=== PATIENT | male | born 1945 | race Two or more races ===

== ENCOUNTER 2018-05-13 14:38 | Emergency (ER) | payer MEDICARE ==
[~2018-05-13] VITALS: Ht 162.6 cm; Wt 76.1 kg
[~2018-05-13 14:38] MED LIST: ALPR1TAB6 PO; HYDR-3237 PO; LEVO112T4 PO; MELA1TAB7 PO; TRAM50TA2 PO; ZOLP5TAB6 PO
[2018-05-13] MEDS ORDERED: SODIUM CHLORIDE FLUSH 10ML SYR IVF ONE (15:00)
[2018-05-13] MEDS ORDERED: FAMOTIDINE 20 MG/2 ML IVP ONE (15:00)
[2018-05-13 15:46] LABS: BASOPHILS # (AUTO) 0.04 x10^3/uL (0-0.1); BASOPHILS % (AUTO) 1 % (0-1); EOSINOPHILS # (AUTO) 0.16 x10^3/uL (0-0.4); EOSINOPHILS % (AUTO) 3 % (1-7); LYMPHOCYTES # (AUTO) 1.97 x10^3/uL (1-3.4); LYMPHOCYTES % (AUTO) 33 % (22-44); MD NO; MEAN CORPUSCULAR HEMOGLOBIN 29.6 pg (27.5-34.5); MEAN CORPUSCULAR HGB CONC 33.3 g/dL (33.2-36.2); MEAN CORPUSCULAR VOLUME 88.9 fL (81-97); MEAN PLATELET VOLUME 7.4 fL (7.4-10.4); MONOCYTES # (AUTO) 0.44 x10^3/uL (0.2-0.8); MONOCYTES % (AUTO) 7 % (2-9); NEUTROPHILS # (AUTO) 3.39 x10^3/uL (1.8-6.8); NEUTROPHILS % (AUTO) 57 % (42-75); PLATELET COUNT 236 x10^3/uL (130-400); RED BLOOD COUNT 4.77 x10^6/uL (4.38-5.82); RED CELL DISTRIBUTION WIDTH 13.9 % (9.4-14.8)
[2018-05-13 15:48] LABS: ALBUMIN 3.8 g/dL (3.4-5.0); ANION GAP 2 mmol/L (5-15); CALCIUM 8.4 mg/dL (8.5-10.1); CHLORIDE 106 mmol/L (98-107)
[2018-05-13 15:51] LABS: ALANINE AMINOTRANSFERASE 25 U/L (12-78); ALKALINE PHOSPHATASE 67 U/L (45-117); BILIRUBIN,TOTAL 0.6 mg/dL (0.2-1.0); CREATININE 0.85 mg/dL (0.7-1.3); TOTAL PROTEIN 7.6 g/dL (6.4-8.2)
--- NOTE | 2018-05-13 15:54 | NUR ---
TO ROOM FROM LOBBY. NAD.
--- NOTE | 2018-05-13 16:15 | NUR ---
PT WITH C/O DIFUSE ABD PAIN X 3 WEEKS. +NAUSEA WITH 1 EPISODE OF EMESIS TODAY. PT ON MONITOR, AND CALL LIGHT W/I REACH. MARILYN, NICO AT BEDSIDE. PT ASSESSMENT REVIEWED AND ORDERS REC'D
[2018-05-13 16:23] VITALS: BP 170/81
--- NOTE | 2018-05-13 16:26 | NUR ---
PT TO CT WITH TECH TRANSPORT
[2018-05-13] MEDS ORDERED: FAMOTIDINE 20 MG/2 ML ONE (16:27)
--- NOTE | 2018-05-13 16:45 | NUR ---
PT AMBULATED TO BR WITHOUT DIFFICULTY.
--- NOTE | 2018-05-13 16:52 | NUR ---
PT RTD FROM CT, MED NOTED. CALL LIGHT W/I REACH. AWAITING TEST RESULTS
[2018-05-13 16:56] LABS: MICROSCOPIC NOT IND
[2018-05-13 17:11] LABS: CULTURE INDICATED? NO
[2018-05-13] MEDS ORDERED: MAALOX/HYOSCYAMINE/LIDOCAINE 45 ML BTL PO ONE (17:30)
== END 2018-05-13 18:00 | disposition home or self-care (01) ==
LOC: ED 17:43
DX: K29.00 Acute gastritis without bleeding (principal); I10 Essential (primary) hypertension; E03.9 Hypothyroidism, unspecified; E11.9 Type 2 diabetes mellitus without complications; N40.0 Benign prostatic hyperplasia without lower urinary tract symptoms; Z90.49 Acquired absence of other specified parts of digestive tract; Z90.89 Acquired absence of other organs
CPT/HCPCS: 36415; 74177; 80053; 81003; 83690; 85025; 96374; 99284; J3490

== ENCOUNTER 2018-06-09 13:08 | Inpatient (IN) | payer MEDICARE ==
[~2018-06-09] VITALS: Ht 165.1 cm; Wt 74.8 kg
--- NOTE | 2018-06-09 13:29 | NUR ---
PT PRESENTS TO ED FOR LUQ AND MID ABD PAIN X1MO, 10/10 SEVERE TODAY WITH VOMITING. PT SUPPOSED TO FOLLOW UP WITH GI DOCTOR BUT CANNOT GET IN UNTIL JUNE. PT STATES IT HURTS MORE WHEN HE EATS.
[2018-06-09] MEDS ORDERED: HYDROcodone/APAP 5/325 TABLET ONE (13:55)
[2018-06-09] MEDS ORDERED: FAMOTIDINE 20 MG TABLET ONE (13:55)
[2018-06-09] MEDS ORDERED: MAALOX/HYOSCYAMINE/LIDOCAINE 45 ML BTL ONE (13:56)
[2018-06-09] MEDS ORDERED: FAMOTIDINE 20 MG TABLET PO ONE (14:00)
[2018-06-09] MEDS ORDERED: MAALOX/HYOSCYAMINE/LIDOCAINE 45 ML BTL PO ONE (14:00)
[2018-06-09] MEDS ORDERED: HYDROcodone/APAP 5/325 TABLET PO ONE (14:00)
[2018-06-09 14:17] LABS: BASOPHILS # (AUTO) 0.01 x10^3/uL (0-0.1); BASOPHILS % (AUTO) 0 % (0-1); EOSINOPHILS # (AUTO) 0.08 x10^3/uL (0-0.4); EOSINOPHILS % (AUTO) 2 % (1-7); LYMPHOCYTES # (AUTO) 0.93 x10^3/uL (1-3.4); LYMPHOCYTES % (AUTO) 19 % (22-44); MD NO; MEAN CORPUSCULAR HGB CONC 33.8 g/dL (33.2-36.2); MEAN CORPUSCULAR VOLUME 88.9 fL (81-97); MEAN PLATELET VOLUME 7.4 fL (7.4-10.4); MONOCYTES # (AUTO) 0.27 x10^3/uL (0.2-0.8); MONOCYTES % (AUTO) 6 % (2-9); NEUTROPHILS # (AUTO) 3.72 x10^3/uL (1.8-6.8); NEUTROPHILS % (AUTO) 74 % (42-75); PLATELET COUNT 266 x10^3/uL (130-400); RED BLOOD COUNT 5.09 x10^6/uL (4.38-5.82); RED CELL DISTRIBUTION WIDTH 13.4 % (9.4-14.8)
--- NOTE | 2018-06-09 14:30 | NUR ---
IV ESTABLISHED, PT MEDICATED FOR PAIN. ADMIT ORDERS RECIEVED, AWAITING BED PLACEMENT
[2018-06-09 14:33] LABS: ALANINE AMINOTRANSFERASE 266 U/L (12-78); ALBUMIN 3.9 g/dL (3.4-5.0); ALKALINE PHOSPHATASE 211 U/L (45-117); ANION GAP 5 mmol/L (5-15); BILIRUBIN,TOTAL 3.8 mg/dL (0.2-1.0); CHLORIDE 106 mmol/L (98-107); CREATININE 0.96 mg/dL (0.7-1.3); TOTAL PROTEIN 7.5 g/dL (6.4-8.2)
[2018-06-09] MEDS: SODIUM CHLORIDE 0.9% 1,000 ML IV SCH ×6 (14:59→23:00)
[2018-06-09] MEDS ORDERED: ONDANSETRON 2MG/ML, 2ML IVPush ONE (15:00)
[2018-06-09] MEDS ORDERED: morphine SULFATE 10 MG/ML, 1ML IVPush ONE (15:00)
[2018-06-09] MEDS ORDERED: MORPHINE SULFATE 4 MG/ML, 1ML ONE (15:05)
[2018-06-09] MEDS ORDERED: ONDANSETRON 2MG/ML, 2ML ONE (15:05)
[2018-06-09] MEDS ORDERED: OMEP10CA4 PO (15:59)
[2018-06-09] MEDS ORDERED: PRAV10TA2 PO (15:59)
--- NOTE | 2018-06-09 15:59 | NUR ---
PT RESTING IN [facility] WITH AT BEDSIDE. AWAITING MED BED PLACEMENT. VSS. PAIN NOW 10/08. PT REQUESTING PRIVATE ROOM, ADMITTING NOTIFIED. MED REC UPDATED. AT BEDSIDE
[2018-06-09] MEDS ORDERED: TEMPLATE NON-FORMULARY MED. (Alprazolam** 1 MG) PO PRN (16:00)
[2018-06-09] MEDS ORDERED: ENALAPRILAT 1.25 MG/ML, 2ML IVPush PRN (16:00)
[2018-06-09] MEDS ORDERED: HYDROcodone/APAP 5/325 TABLET PO PRN (16:00)
--- NOTE | 2018-06-09 16:45 | NUR ---
PT TO US
[2018-06-09 17:21] LABS: HEMOGLOBIN A1C 7.4 % (4.2-6.3)
--- NOTE | 2018-06-09 17:22 | NUR ---
PT BACK FROM US, RESTING IN [facility], ON MONITOR. CALL LIGHT WITHIN REACH. NO NEEDS AT THIS TIME
--- NOTE | 2018-06-09 18:12 | NUR ---
PT RESTING IN [facility] [place], CALL LIGHT WITHIN REACH, VSS, NAD
--- NOTE | 2018-06-09 19:06 | NUR ---
REPORT RECEIVED FROM [place] [facility].
--- NOTE | 2018-06-09 20:00 | NUR ---
PT PROVIDED URINAL. URINAL AT BEDSIDE.
[2018-06-09] MEDS: [UNRECOGNIZED DRUG - OTHER] PO SCH (21:00)
[2018-06-09] MEDS: PYRIDOXINE PO SCH (21:00)
[2018-06-09] MEDS: MELATONIN PO SCH (21:00)
--- NOTE | 2018-06-09 21:19 | NUR ---
REPORT GIVEN TO [place] [facility].
[2018-06-09] MEDS: PANTOPRAZOLE 40 MG IV IVPush SCH (22:30)
[2018-06-09] MEDS: morphine SULFATE 10 MG/ML, 1ML IVPush PRN (22:30)
[2018-06-09 23:37] VITALS: BP 169/90
[2018-06-10] MEDS: SODIUM CHLORIDE 0.9% 1,000 ML IV SCH ×3 (01:56→17:45)
[2018-06-10 02:28] VITALS: BP 154/100
[2018-06-10] MEDS: morphine SULFATE 10 MG/ML, 1ML IVPush PRN ×7 (02:55→23:03)
[2018-06-10] MEDS: ONDANSETRON 2MG/ML, 2ML IVPush PRN (02:55)
[2018-06-10 04:39] LABS: BASOPHILS # (AUTO) 0.01 x10^3/uL (0-0.1); BASOPHILS % (AUTO) 0 % (0-1); EOSINOPHILS # (AUTO) 0.23 x10^3/uL (0-0.4); EOSINOPHILS % (AUTO) 4 % (1-7); LYMPHOCYTES # (AUTO) 1.44 x10^3/uL (1-3.4); LYMPHOCYTES % (AUTO) 24 % (22-44); MD NO; MEAN CORPUSCULAR HEMOGLOBIN 30.5 pg (27.5-34.5); MEAN CORPUSCULAR HGB CONC 34.2 g/dL (33.2-36.2); MEAN CORPUSCULAR VOLUME 89.2 fL (81-97); MEAN PLATELET VOLUME 7.5 fL (7.4-10.4); MONOCYTES # (AUTO) 0.38 x10^3/uL (0.2-0.8); MONOCYTES % (AUTO) 6 % (2-9); NEUTROPHILS # (AUTO) 3.85 x10^3/uL (1.8-6.8); NEUTROPHILS % (AUTO) 65 % (42-75); PLATELET COUNT 240 x10^3/uL (130-400); RED CELL DISTRIBUTION WIDTH 13.7 % (9.4-14.8)
[2018-06-10 04:52] LABS: CHLORIDE 108 mmol/L (98-107)
[2018-06-10 05:03] LABS: ALANINE AMINOTRANSFERASE 212 U/L (12-78); ALBUMIN 3.3 g/dL (3.4-5.0); ALKALINE PHOSPHATASE 206 U/L (45-117); ANION GAP 3 mmol/L (5-15); BILIRUBIN,TOTAL 2.2 mg/dL (0.2-1.0); CALCIUM 8.1 mg/dL (8.5-10.1); CHOL/HDL RATIO 4.1; CHOLESTEROL, TOTAL 170 mg/dL (140-239); CREATININE 0.71 mg/dL (0.7-1.3); HDL CHOL % 24 % (26-37); HDL CHOLESTEROL (DIRECT) 41 mg/dL (40-60); LDL CHOLESTEROL,CALCULATED 108 mg/dL (54-169); LDL/HDL RATIO 2.6 (0.5-3.0); TOTAL PROTEIN 6.9 g/dL (6.4-8.2); TRIGLYCERIDES 103 mg/dL (50-200); VLDL CHOLESTEROL 21 mg/dL (0-25)
[2018-06-10] MEDS: PANTOPRAZOLE 40 MG IV IVPush SCH ×2 (08:54→22:14)
[2018-06-10] MEDS ORDERED: GLIMEPIRIDE 1 MG TABLET PO SCH ×2 (09:00→16:00)
[2018-06-10] MEDS ORDERED: LEVOTHYROXINE 112 MCG TABLET PO SCH (09:00)
[2018-06-10] MEDS: LEVOTHYROXINE 100 MCG INJ IVPush SCH (09:05)
[2018-06-10 14:30] VITALS: BP 147/82
[2018-06-10] MEDS ORDERED: POTASSIUM PHOSPHATE 22 MEQ in SODIUM CHLORIDE 0.9% 500 ML IV ONE (16:00)
[2018-06-10 19:45] VITALS: BP 164/84
[2018-06-10] MEDS: MELATONIN PO SCH (21:00)
[2018-06-10] MEDS: [UNRECOGNIZED DRUG - OTHER] PO SCH (21:00)
[2018-06-10] MEDS: PYRIDOXINE PO SCH (21:00)
[2018-06-11] MEDS: ONDANSETRON 2MG/ML, 2ML IVPush PRN (01:02)
[2018-06-11 02:30] VITALS: BP 138/89
[2018-06-11 04:38] LABS: ALANINE AMINOTRANSFERASE 147 U/L (12-78); ALBUMIN 3.4 g/dL (3.4-5.0); ANION GAP 8 mmol/L (5-15); CALCIUM 8.2 mg/dL (8.5-10.1); CHLORIDE 109 mmol/L (98-107); CREATININE 0.82 mg/dL (0.7-1.3)
[2018-06-11 04:40] LABS: ALKALINE PHOSPHATASE 182 U/L (45-117); BILIRUBIN,TOTAL 1.2 mg/dL (0.2-1.0); TOTAL PROTEIN 6.7 g/dL (6.4-8.2)
[2018-06-11 08:03] VITALS: BP 175/93
[2018-06-11] MEDS: morphine SULFATE 10 MG/ML, 1ML IVPush PRN (08:12)
[2018-06-11] MEDS: SODIUM CHLORIDE 0.9% 1,000 ML IV SCH (08:12)
[2018-06-11] MEDS: LEVOTHYROXINE 100 MCG INJ IVPush SCH (08:15)
[2018-06-11] MEDS ORDERED: GLIMEPIRIDE 1 MG TABLET PO SCH (09:00)
[2018-06-11] MEDS: PANTOPRAZOLE 40 MG IV IVPush SCH (10:38)
[2018-06-11] MEDS ORDERED: OMEP10CA4 PO (10:40)
[2018-06-11] MEDS ORDERED: SUCR1ORA5 PO (10:40)
[2018-06-11] MEDS ORDERED: GLIM1TAB PO ×2 (10:40)
[2018-06-11 15:24] VITALS: BP 148/85
== END 2018-06-11 15:45 | disposition home or self-care (01) | DRG 438 ==
LOC: ED 14:53 → SUATTDRO 15:17 → EDIP 15:19 → ICU 21:45 → DCLOUNGE 06-11 15:26
PROVIDERS: ADMIT Hospitalist; ATTEND Hospitalist
DX: K85.00 Idiopathic acute pancreatitis without necrosis or infection (principal); K83.1 Obstruction of bile duct; E03.9 Hypothyroidism, unspecified; E11.65 Type 2 diabetes mellitus with hyperglycemia; E78.5 Hyperlipidemia, unspecified; E83.39 Other disorders of phosphorus metabolism; F41.9 Anxiety disorder, unspecified; I10 Essential (primary) hypertension; N40.0 Benign prostatic hyperplasia without lower urinary tract symptoms; Z90.49 Acquired absence of other specified parts of digestive tract; Z89.022 Acquired absence of left finger(s); Z87.891 Personal history of nicotine dependence
CPT/HCPCS: 36415; 76700; 80053; 80061; 80074; 83036; 83690; 83735; 84100; 84443; 85025; 86677; 87081; 96374; 96375; 99285; G0378; J2405; C9113; J2270; J7030; J7040

== ENCOUNTER 2018-06-24 12:25 | Inpatient (IN) | payer MEDICARE ==
[~2018-06-24] VITALS: Ht 167.6 cm; Wt 66.5 kg
[~2018-06-24 12:25] MED LIST changes: +GLIM1TAB PO; +OMEP10CA4 PO; +PRAV10TA2 PO; +SUCR1ORA5 PO
[2018-06-24 13:27] LABS: BASOPHILS # (AUTO) 0.03 x10^3/uL (0-0.1); BASOPHILS % (AUTO) 1 % (0-1); EOSINOPHILS # (AUTO) 0.12 x10^3/uL (0-0.4); EOSINOPHILS % (AUTO) 2 % (1-7); LYMPHOCYTES # (AUTO) 1.04 x10^3/uL (1-3.4); LYMPHOCYTES % (AUTO) 21 % (22-44); MD NO; MEAN CORPUSCULAR HEMOGLOBIN 29.9 pg (27.5-34.5); MEAN CORPUSCULAR HGB CONC 33.5 g/dL (33.2-36.2); MEAN CORPUSCULAR VOLUME 89.3 fL (81-97); MEAN PLATELET VOLUME 7.7 fL (7.4-10.4); MONOCYTES # (AUTO) 0.27 x10^3/uL (0.2-0.8); MONOCYTES % (AUTO) 5 % (2-9); NEUTROPHILS # (AUTO) 3.62 x10^3/uL (1.8-6.8); NEUTROPHILS % (AUTO) 71 % (42-75); PLATELET COUNT 277 x10^3/uL (130-400)
[2018-06-24 13:39] LABS: ANION GAP 7 mmol/L (5-15); CALCIUM 8.9 mg/dL (8.5-10.1); CHLORIDE 102 mmol/L (98-107)
[2018-06-24 13:43] LABS: ALANINE AMINOTRANSFERASE 231 U/L (12-78); ALKALINE PHOSPHATASE 267 U/L (45-117); BILIRUBIN,TOTAL 1.3 mg/dL (0.2-1.0); CREATININE 0.94 mg/dL (0.7-1.3); TOTAL PROTEIN 7.5 g/dL (6.4-8.2)
--- NOTE | 2018-06-24 14:16 | NUR ---
TIFFANY-Whitney IS AT THE BEDSIDE FOR ASSESSMENT
[2018-06-24 14:45] LABS: MICROSCOPIC NOT IND
[2018-06-24 14:48] LABS: CULTURE INDICATED? NO
[2018-06-24] MEDS ORDERED: MORPHINE SULFATE 4 MG/ML, 1ML IVPush PRN (15:30)
[2018-06-24] MEDS ORDERED: ONDANSETRON 2MG/ML, 2ML IVPush ONE (15:30)
[2018-06-24] MEDS ORDERED: SODIUM CHLORIDE FLUSH 10ML SYR IVF ONE (15:30)
[2018-06-24] MEDS ORDERED: MORPHINE SULFATE 4 MG/ML, 1ML ONE (16:18)
[2018-06-24] MEDS ORDERED: ONDANSETRON 2MG/ML, 2ML ONE (16:18)
--- NOTE | 2018-06-24 16:28 | NUR ---
IS AT THE BEDSIDE FOR DISPO.
--- NOTE | 2018-06-24 18:28 | NUR ---
[facility]
--- NOTE | 2018-06-24 18:31 | NUR ---
VERBAL SBAR REPORT EXCHANGED Qamar ALVAREZ ([facility]) ON THE FLOOR FOR ADMISSIN. WE WILL BEGIN TO PREPARE FOR TRANSPORT AT THIS TIME.
[2018-06-24] MEDS: HEPARIN 5,000 UNITS/ML, 1ML SQ SCH (19:00)
[2018-06-24] MEDS ORDERED: HYDROcodone/APAP 5/325 TABLET PO PRN (19:00)
[2018-06-24] MEDS ORDERED: BISACODYL 10 MG SUPP PR PRN (19:00)
[2018-06-24 19:23] LABS: CHOL/HDL RATIO 4.6; LDL/HDL RATIO 2.7 (0.5-3.0); THYROID STIMULATING HORMONE 1.33 mIU/L (0.358-3.740)
[2018-06-24 20:03] LABS: HEMOGLOBIN A1C 7.7 % (4.2-6.3)
[2018-06-24 20:12] VITALS: BP 111/66
[2018-06-24] MEDS: LACTATED RINGERS 1,000 ML IV SCH (20:33)
[2018-06-24] MEDS: OMEPRAZOLE 20 MG CAPSULE.DR PO SCH (21:21)
[2018-06-24] MEDS: MELATONIN 5 MG TABLET PO SCH (21:22)
[2018-06-24] MEDS ORDERED: MORPHINE SULFATE 4 MG/ML, 1ML IVPush ONE (23:00)
[2018-06-25 01:50] VITALS: BP 144/69
[2018-06-25] MEDS: HEPARIN 5,000 UNITS/ML, 1ML SQ SCH ×3 (03:00→20:41)
[2018-06-25 05:48] LABS: BASOPHILS # (AUTO) 0.06 x10^3/uL (0-0.1); BASOPHILS % (AUTO) 1 % (0-1); EOSINOPHILS # (AUTO) 0.19 x10^3/uL (0-0.4); EOSINOPHILS % (AUTO) 3 % (1-7); LYMPHOCYTES # (AUTO) 2.14 x10^3/uL (1-3.4); LYMPHOCYTES % (AUTO) 38 % (22-44); MD NO; MEAN CORPUSCULAR HEMOGLOBIN 30.1 pg (27.5-34.5); MEAN CORPUSCULAR HGB CONC 33.5 g/dL (33.2-36.2); MEAN CORPUSCULAR VOLUME 89.9 fL (81-97); MEAN PLATELET VOLUME 7.9 fL (7.4-10.4); MONOCYTES # (AUTO) 0.42 x10^3/uL (0.2-0.8); MONOCYTES % (AUTO) 8 % (2-9); NEUTROPHILS # (AUTO) 2.78 x10^3/uL (1.8-6.8); NEUTROPHILS % (AUTO) 50 % (42-75); PLATELET COUNT 244 x10^3/uL (130-400); RED BLOOD COUNT 4.46 x10^6/uL (4.38-5.82); RED CELL DISTRIBUTION WIDTH 14.3 % (9.4-14.8)
[2018-06-25 06:00] LABS: ALANINE AMINOTRANSFERASE 167 U/L (12-78); ALBUMIN 3.4 g/dL (3.4-5.0); ANION GAP 5 mmol/L (5-15); CALCIUM 8.6 mg/dL (8.5-10.1); CHLORIDE 106 mmol/L (98-107); CREATININE 0.84 mg/dL (0.7-1.3)
[2018-06-25 06:28] LABS: BILIRUBIN,TOTAL 1.4 mg/dL (0.2-1.0)
[2018-06-25 06:29] LABS: ALKALINE PHOSPHATASE 224 U/L (45-117); TOTAL PROTEIN 6.5 g/dL (6.4-8.2)
[2018-06-25 07:30] VITALS: BP 127/74
[2018-06-25] MEDS ORDERED: MORPHINE SULFATE 4 MG/ML, 1ML IVPush ONE (07:50)
[2018-06-25] MEDS: LACTATED RINGERS 1,000 ML IV SCH ×2 (07:57→21:56)
[2018-06-25] MEDS: OMEPRAZOLE 20 MG CAPSULE.DR PO SCH ×2 (09:00→20:41)
[2018-06-25] MEDS: LEVOTHYROXINE 112 MCG TABLET PO SCH (09:00)
[2018-06-25] MEDS ORDERED: GLYCOPYRROLATE 0.2MG/1ML, 5ML ONE (10:01)
[2018-06-25] MEDS ORDERED: DEXAMETHASONE 4 MG/ML, 1ML ONE (10:01)
[2018-06-25] MEDS ORDERED: PROPOFOL 10 MG/ML, 20ML ONE (10:01)
[2018-06-25] MEDS ORDERED: SUCCINYLCHOLINE 20 MG/ML, 10ML ONE (10:01)
[2018-06-25] MEDS ORDERED: ONDANSETRON 2MG/ML, 2ML ONE (10:01)
[2018-06-25] MEDS: MORPHINE SULFATE 4 MG/ML, 1ML IVPush PRN (11:41)
[2018-06-25] MEDS: INSULIN LISPRO 100 UNITS/ML, PEN SQ-INSULIN SCH ×3 (13:36→20:51)
[2018-06-25] MEDS ORDERED: FENTANYL PF 100 MCG/2ML ONE (14:55)
[2018-06-25] MEDS ORDERED: LABETALOL 5MG/ML, 20ML IV PRN (15:00)
[2018-06-25] MEDS ORDERED: METOPROLOL 1 MG/ML, 5ML IV PRN (15:00)
[2018-06-25] MEDS ORDERED: PROMETHAZINE 25 MG/ML, 1ML IV PRN (15:00)
[2018-06-25] MEDS ORDERED: FENTANYL PF 100 MCG/2ML IV PRN (15:00)
[2018-06-25] MEDS ORDERED: MEPERIDINE/PF 25MG/0.5ML IVPush PRN (15:00)
[2018-06-25] MEDS ORDERED: HALOPERIDOL 5 MG/ML IV PRN (15:00)
[2018-06-25] MEDS ORDERED: PROCHLORPERAZINE 5 MG/ML, 2ML IV PRN (15:00)
[2018-06-25] MEDS ORDERED: hydrALAzine 20 MG/ML, 1ML IV PRN (15:00)
[2018-06-25] MEDS ORDERED: DIPHENHYDRAMINE 50 MG/ML, 1ML IVPush PRN (15:00)
[2018-06-25] MEDS ORDERED: OXYcodone 5 MG/5 ML ORAL.SOL UDC PO PRN (15:00)
[2018-06-25] MEDS ORDERED: EPHEDRINE 50 MG/ML, 1ML IVPush PRN (15:00)
[2018-06-25] MEDS ORDERED: HYDROmorphone 2 MG/ML, 1ML IVPush PRN (15:00)
[2018-06-25] MEDS ORDERED: OMNIPAQUE 350 MG/ML, 50 ML BOTTLE ONE (16:05)
[2018-06-25] MEDS ORDERED: HALOPERIDOL 5 MG/ML ONE (17:10)
[2018-06-25 17:50] VITALS: BP 162/97
[2018-06-25 18:16] VITALS: BP_SYST 167
[2018-06-25] MEDS: ATORVASTATIN 40 MG TABLET PO SCH (20:41)
[2018-06-25] MEDS: ALPRazolam 1MG TAB PO PRN (20:41)
[2018-06-25] MEDS: MELATONIN 5 MG TABLET PO SCH (20:41)
[2018-06-25 20:45] VITALS: BP 156/94
[2018-06-26 01:31] VITALS: BP 146/83
[2018-06-26] MEDS: HEPARIN 5,000 UNITS/ML, 1ML SQ SCH ×3 (03:22→21:08)
[2018-06-26 04:05] VITALS: BP 172/98
[2018-06-26] MEDS: ALPRazolam 1MG TAB PO PRN ×2 (05:44→21:08)
[2018-06-26 07:57] VITALS: BP 174/93
[2018-06-26] MEDS: OMEPRAZOLE 20 MG CAPSULE.DR PO SCH ×2 (08:12→21:08)
[2018-06-26] MEDS: INSULIN LISPRO 100 UNITS/ML, PEN SQ-INSULIN SCH ×4 (08:12→21:08)
[2018-06-26] MEDS: LEVOTHYROXINE 112 MCG TABLET PO SCH (08:13)
[2018-06-26] MEDS: LACTATED RINGERS 1,000 ML IV SCH ×2 (08:13→17:16)
[2018-06-26 13:37] VITALS: BP 186/89
[2018-06-26] MEDS ORDERED: ACETAMINOPHEN 325 MG TABLET ONE (14:58)
[2018-06-26] MEDS ORDERED: AMLODIPINE 5 MG TABLET ONE (14:59)
[2018-06-26] MEDS ORDERED: ACETAMINOPHEN 325 MG TABLET PO PRN (15:00)
[2018-06-26] MEDS: HYDROcodone/APAP 5/325 TABLET PO PRN ×2 (15:51→21:08)
[2018-06-26 19:36] VITALS: BP 153/85
[2018-06-26] MEDS: ATORVASTATIN 40 MG TABLET PO SCH (21:08)
[2018-06-26] MEDS: MELATONIN 5 MG TABLET PO SCH (21:08)
[2018-06-26] MEDS: POLYETHYLENE GLYCOL 17 GM PACKET PO PRN (21:14)
[2018-06-27 01:16] VITALS: BP 150/78
[2018-06-27] MEDS: LACTATED RINGERS 1,000 ML IV SCH ×2 (03:10→12:33)
[2018-06-27] MEDS: HEPARIN 5,000 UNITS/ML, 1ML SQ SCH ×2 (03:13→11:00)
[2018-06-27] MEDS: MORPHINE SULFATE 4 MG/ML, 1ML IVPush PRN (05:12)
[2018-06-27 06:22] LABS: ALBUMIN 3.6 g/dL (3.4-5.0); ANION GAP 8 mmol/L (5-15); CALCIUM 8.9 mg/dL (8.5-10.1); CHLORIDE 106 mmol/L (98-107)
[2018-06-27 06:27] LABS: ALANINE AMINOTRANSFERASE 124 U/L (12-78); ALKALINE PHOSPHATASE 217 U/L (45-117); BILIRUBIN,TOTAL 1.2 mg/dL (0.2-1.0); TOTAL PROTEIN 6.9 g/dL (6.4-8.2)
[2018-06-27 07:17] VITALS: BP 154/91
[2018-06-27] MEDS: OMEPRAZOLE 20 MG CAPSULE.DR PO SCH (07:58)
[2018-06-27] MEDS: LEVOTHYROXINE 112 MCG TABLET PO SCH (07:58)
[2018-06-27] MEDS: POLYETHYLENE GLYCOL 17 GM PACKET PO PRN (07:58)
[2018-06-27] MEDS: INSULIN LISPRO 100 UNITS/ML, PEN SQ-INSULIN SCH ×3 (07:59→16:19)
[2018-06-27] MEDS: HYDROcodone/APAP 5/325 TABLET PO PRN (08:38)
[2018-06-27 13:18] VITALS: BP 151/75
[2018-06-27] MEDS ORDERED: AMLODIPINE 5 MG TABLET PO SCH (15:00)
[2018-06-27] MEDS ORDERED: ATOR40TA78 PO ×2 (17:29)
[2018-06-27] MEDS ORDERED: AMLO-150 PO (17:29)
[2018-06-27] MEDS ORDERED: ASPI81TA45 PO (17:29)
[2018-06-27] MEDS ORDERED: POTASSIUM CHLORIDE 20 MEQ TAB.ER.PRT PO ONE (18:00)
[2018-06-27] MEDS ORDERED: GLIM1TAB PO (18:10)
== END 2018-06-27 18:14 | disposition home or self-care (01) | DRG 444 ==
LOC: ED 16:27 → EDIP 16:28 → ED 16:39 → 3NE 19:15
PROVIDERS: ADMIT Internal Medicine; ATTEND Internal Medicine
PROC: 0F798DZ Dilation of Common Bile Duct with Intraluminal Device, Via Natural or Artificial Opening Endoscopic (ICD-10-PCS; 2018-06-25)
PROC: BF131ZZ Fluoroscopy of Gallbladder and Bile Ducts using Low Osmolar Contrast (ICD-10-PCS; principal; 2018-06-25 15:45)
DX: K80.51 Calculus of bile duct without cholangitis or cholecystitis with obstruction (principal); K85.90 Acute pancreatitis without necrosis or infection, unspecified; E78.5 Hyperlipidemia, unspecified; F41.9 Anxiety disorder, unspecified; G89.29 Other chronic pain; N40.0 Benign prostatic hyperplasia without lower urinary tract symptoms; I10 Essential (primary) hypertension; E78.1 Pure hyperglyceridemia; E11.9 Type 2 diabetes mellitus without complications; E03.9 Hypothyroidism, unspecified; N20.0 Calculus of kidney; K86.89 Other specified diseases of pancreas; Z87.891 Personal history of nicotine dependence; Z82.49 Family history of ischemic heart disease and other diseases of the circulatory system; Z83.3 Family history of diabetes mellitus; Z79.899 Other long term (current) drug therapy; Z90.49 Acquired absence of other specified parts of digestive tract
CPT/HCPCS: 36415; 74022; 74181; 74328; 80053; 80061; 81003; 82378; 82962; 83036; 83690; 84443; 85025; 86301; 88104; 88112; G0378; J1100; J1644; J2405; J2704; J3010; J3490; Q9967; C1769; C1894; C2625; J0330; J1630; J1815; J7120

== ENCOUNTER 2018-07-08 07:54 | Day surgery (SDC) | payer MEDICARE ==
[~2018-07-08] VITALS: Ht 165.1 cm; Wt 71.9 kg
[~2018-07-08 07:54] MED LIST changes: +AMLO-150 PO; +ASPI81TA45 PO; +ATOR40TA78 PO
[2018-07-08] MEDS ORDERED: SUCR1TAB PO (08:52)
[2018-07-08 08:58] VITALS: BP 134/87
[2018-07-08] MEDS ORDERED: LACTATED RINGERS 1,000 ML IV SCH (08:58)
[2018-07-08] MEDS ORDERED: GLYCOPYRROLATE 0.2MG/1ML, 5ML ONE (09:56)
[2018-07-08] MEDS ORDERED: DEXAMETHASONE 4 MG/ML, 1ML ONE (09:56)
[2018-07-08] MEDS ORDERED: PROPOFOL 10 MG/ML, 20ML ONE (09:56)
[2018-07-08] MEDS ORDERED: ONDANSETRON 2MG/ML, 2ML ONE (09:56)
[2018-07-08] MEDS ORDERED: FENTANYL PF 100 MCG/2ML ONE (09:58)
[2018-07-08] MEDS ORDERED: FENTANYL PF 100 MCG/2ML IV PRN (10:30)
[2018-07-08] MEDS ORDERED: OXYcodone 5 MG/5 ML ORAL.SOL UDC PO PRN (10:30)
[2018-07-08] MEDS ORDERED: HYDROmorphone 2 MG/ML, 1ML IVPush PRN (10:30)
[2018-07-08] MEDS ORDERED: ONDANSETRON 2MG/ML, 2ML IV PRN (10:30)
[2018-07-08] MEDS ORDERED: OMNIPAQUE 350 MG/ML, 50 ML BOTTLE ONE (11:07)
== END 2018-07-08 13:20 | disposition home or self-care (01) ==
LOC: OUT 07:54
PROVIDERS: ATTEND Internal Medicine Geriatric Medicine
DX: C25.0 Malignant neoplasm of head of pancreas (principal); K83.1 Obstruction of bile duct; E78.5 Hyperlipidemia, unspecified; E03.9 Hypothyroidism, unspecified; Z98.890 Other specified postprocedural states
CPT/HCPCS: 43242; 43276; 74328; 82962; 88172; 88173; 88177; 88305; C1769; C1894; C2625; J1100; J2405; J2704; J3010; J3490; J7120; Q9967

== ENCOUNTER 2018-11-11 14:15 | Inpatient (IN) | payer MEDICARE ==
[~2018-11-11] VITALS: Ht 162.6 cm; Wt 68.9 kg
[2018-11-12 14:16] VITALS: BP 146/83
== END 2018-11-12 15:45 | disposition home or self-care (01) | DRG 948 ==
LOC: ED 19:28 → EDIP 19:33 → ED 19:39 → 3NE 21:57 → 3NW 11-12 10:34 → DCLOUNGE 11-12 15:40
PROVIDERS: ADMIT Internal Medicine; ATTEND Internal Medicine
DX: G89.18 Other acute postprocedural pain (principal); C24.0 Malignant neoplasm of extrahepatic bile duct; K59.03 Drug induced constipation; D72.819 Decreased white blood cell count, unspecified; D72.825 Bandemia; E03.9 Hypothyroidism, unspecified; E11.65 Type 2 diabetes mellitus with hyperglycemia; E78.5 Hyperlipidemia, unspecified; F41.9 Anxiety disorder, unspecified; G89.29 Other chronic pain; K59.09 Other constipation; M54.30 Sciatica, unspecified side; T40.2X5A Adverse effect of other opioids, initial encounter; Z82.49 Family history of ischemic heart disease and other diseases of the circulatory system; Z83.3 Family history of diabetes mellitus; Z85.09 Personal history of malignant neoplasm of other digestive organs; Z87.891 Personal history of nicotine dependence; Y92.89 Other specified places as the place of occurrence of the external cause
CPT/HCPCS: 36415; 72141; 72146; 72148; 74021; 80048; 83735; 85025; 96372; G0378; J1170; J1650; J1885; J2800

== ENCOUNTER 2019-02-25 12:27 | Outpatient (CLI) | payer MEDICARE ==
[~2019-02-25 12:27] MED LIST changes: +IBUP-1902 PO; +INSULIN; +LIDO700A20 TD; +METH500T7 PO; -OMEP10CA4 PO; +OMEP10CA5 PO; +SUCR1TAB PO
== END 2019-02-25 23:59 | disposition home or self-care (01) ==
LOC: CVU 12:27
PROVIDERS: ATTEND Nurse Practitioner Women's Health
DX: Z01.818 Encounter for other preprocedural examination (principal); K86.89 Other specified diseases of pancreas; I08.8 Other rheumatic multiple valve diseases; I45.10 Unspecified right bundle-branch block; I11.9 Hypertensive heart disease without heart failure; Z85.07 Personal history of malignant neoplasm of pancreas
CPT/HCPCS: 0399T; 93306

== ENCOUNTER 2019-03-26 10:46 | Day surgery (SDC) | payer MEDICARE ==
[~2019-03-26] VITALS: Ht 162.6 cm; Wt 69.0 kg
[2019-03-26 11:02] VITALS: BP 142/88
[2019-03-26] MEDS ORDERED: LACTATED RINGERS 1,000 ML IV SCH (11:22)
[2019-03-26] MEDS ORDERED: FENTANYL PF 250 MCG/5ML ONE (11:59)
[2019-03-26] MEDS ORDERED: INSU100V8 SQ (12:15)
[2019-03-26] MEDS ORDERED: INSU200I SQ (12:15)
[2019-03-26] MEDS ORDERED: FENTANYL PF 100 MCG/2ML IV PRN ×2 (13:00)
[2019-03-26] MEDS ORDERED: ONDANSETRON 2MG/ML, 2ML IV PRN ×2 (13:00)
[2019-03-26] MEDS ORDERED: hydrALAzine 20 MG/ML, 1ML IV PRN (13:00)
[2019-03-26] MEDS ORDERED: OXYcodone 5 MG/5 ML ORAL.SOL UDC PO PRN ×2 (13:00)
[2019-03-26] MEDS ORDERED: HYDROmorphone 2 MG/ML, 1ML IVPush PRN ×2 (13:00)
[2019-03-26] MEDS ORDERED: MEPERIDINE/PF 25MG/ML,1ML IVPush PRN ×2 (13:00)
[2019-03-26] MEDS ORDERED: LABETALOL 5 MG/ML SYR. (IV ONLY) IV PRN (13:00)
[2019-03-26] MEDS ORDERED: MORPHINE SULFATE 4 MG/ML, 1ML IVPush PRN ×2 (13:00)
[2019-03-26] MEDS ORDERED: PROPOFOL 10 MG/ML, 20ML ONE (13:28)
[2019-03-26] MEDS ORDERED: NEOSTIGMINE 1 MG/ML, 10ML ONE (13:46)
[2019-03-26] MEDS ORDERED: GLYCOPYRROLATE 0.2MG/1ML, 5ML ONE (13:46)
[2019-03-26] MEDS ORDERED: ROCURONIUM 10MG/ML,5ML ONE (13:46)
[2019-03-26] MEDS ORDERED: SUGAMMADEX 200 MG/2 ML IVPush ONE (13:46)
[2019-03-26] MEDS ORDERED: CEFAZOLIN 1,000 MG ONE (13:46)
== END 2019-03-26 15:35 | disposition home or self-care (01) ==
LOC: OR 10:46 → MERGE 12:30 → EDBD 12:30 → OR 15:35
PROVIDERS: ATTEND Internal Medicine Geriatric Medicine
DX: Z46.59 Encounter for fitting and adjustment of other gastrointestinal appliance and device (principal); K83.1 Obstruction of bile duct; C25.3 Malignant neoplasm of pancreatic duct; E11.9 Type 2 diabetes mellitus without complications; I10 Essential (primary) hypertension; E78.5 Hyperlipidemia, unspecified; E03.9 Hypothyroidism, unspecified; K21.9 Gastro-esophageal reflux disease without esophagitis; Z79.4 Long term (current) use of insulin; Z79.890 Hormone replacement therapy; Z79.891 Long term (current) use of opiate analgesic; Z79.899 Other long term (current) drug therapy; Z87.891 Personal history of nicotine dependence; Z88.8 Allergy status to other drugs, medicaments and biological substances
CPT/HCPCS: 43276; 82962; C1769; C1894; C2625; J0690; J2704; J2710; J3010; J7120

== ENCOUNTER 2019-06-04 23:37 | Emergency (ER) | payer MEDICARE ==
[~2019-06-04] VITALS: Ht 167.6 cm; Wt 7.3 kg
[~2019-06-04 23:37] MED LIST changes: +INSU100V8 SQ; +INSU200I SQ
[2019-06-05 01:02] LABS: BASOPHILS # (AUTO) 0.01 x10^3/uL (0-0.1); BASOPHILS % (AUTO) 0 % (0-1); EOSINOPHILS # (AUTO) 0.15 x10^3/uL (0-0.4); EOSINOPHILS % (AUTO) 4 % (1-7); LYMPHOCYTES # (AUTO) 1.46 x10^3/uL (1-3.4); LYMPHOCYTES % (AUTO) 40 % (22-44); MD NO; MEAN CORPUSCULAR HEMOGLOBIN 33.3 pg (27.5-34.5); MEAN CORPUSCULAR HGB CONC 33.6 g/dL (33.2-36.2); MEAN CORPUSCULAR VOLUME 99.1 fL (81-97); MEAN PLATELET VOLUME 6.6 fL (7.4-10.4); MONOCYTES # (AUTO) 0.51 x10^3/uL (0.2-0.8); MONOCYTES % (AUTO) 14 % (2-9); NEUTROPHILS # (AUTO) 1.56 x10^3/uL (1.8-6.8); NEUTROPHILS % (AUTO) 42 % (42-75); PLATELET COUNT 138 x10^3/uL (130-400); RED BLOOD COUNT 3.12 x10^6/uL (4.38-5.82); RED CELL DISTRIBUTION WIDTH 15.4 % (9.4-14.8)
[2019-06-05 01:08] LABS: ALBUMIN 3.6 g/dL (3.4-5.0); ANION GAP 5 mmol/L (5-15); CALCIUM 8.5 mg/dL (8.5-10.1); CHLORIDE 106 mmol/L (98-107); CREATININE 0.65 mg/dL (0.7-1.3)
[2019-06-05 01:12] LABS: TROPONIN I < 0.015 ng/mL (0.000-0.045)
[2019-06-05 01:46] VITALS: BP 124/79
== END 2019-06-05 02:06 | disposition home or self-care (01) ==
LOC: ED 23:59
DX: I10 Essential (primary) hypertension (principal); F41.1 Generalized anxiety disorder; E11.9 Type 2 diabetes mellitus without complications; E03.9 Hypothyroidism, unspecified; I45.10 Unspecified right bundle-branch block; R94.31 Abnormal electrocardiogram [ECG] [EKG]; Z90.49 Acquired absence of other specified parts of digestive tract; Z87.891 Personal history of nicotine dependence; Z85.07 Personal history of malignant neoplasm of pancreas; Z90.89 Acquired absence of other organs
CPT/HCPCS: 36415; 80048; 82040; 84484; 85025; 93005; 99284

== ENCOUNTER 2019-06-09 10:26 | Outpatient (CLI) | payer MEDICARE | END 2019-06-09 23:59 | disposition home or self-care (01) | LOC: ROC 10:26 | PROVIDERS: ATTEND Radiology Radiation Oncology | DX: C24.0 Malignant neoplasm of extrahepatic bile duct (principal) | CPT/HCPCS: 77334; 77470; G0463 ==

== ENCOUNTER 2019-07-07 06:21 | Day surgery (SDC) | payer MEDICARE ==
[~2019-07-07] VITALS: Ht 162.6 cm; Wt 71.1 kg
[~2019-07-07 06:21] MED LIST changes: +CLON1TAB11 PO; +HYDR-3246 PO; +LEVO150T5 PO; +LIDO700A42 TD; +OMEP-110 PO; +PRAV20TA2 PO
[2019-07-07] MEDS ORDERED: CHLORHEXIDINE 15 ML UDC MM STA (06:43)
[2019-07-07] MEDS ORDERED: LACTATED RINGERS 1,000 ML IV SCH (06:58)
[2019-07-07 07:02] VITALS: BP 135/95
[2019-07-07] MEDS ORDERED: SUGAMMADEX 200 MG/2 ML IVPush ONE (09:22)
[2019-07-07] MEDS ORDERED: ROCURONIUM 10 MG/ML,10ML ONE (09:22)
[2019-07-07] MEDS ORDERED: PROPOFOL 10 MG/ML, 20ML ONE (09:22)
[2019-07-07] MEDS ORDERED: ACETAMINOPHEN 325 MG TABLET PO PRN (09:30)
[2019-07-07] MEDS ORDERED: ONDANSETRON 2MG/ML, 2ML IV PRN (09:30)
[2019-07-07] MEDS ORDERED: hydrALAzine 20 MG/ML, 1ML IV PRN (09:30)
[2019-07-07] MEDS ORDERED: FENTANYL PF 100 MCG/2ML IV PRN (09:30)
[2019-07-07] MEDS ORDERED: OXYcodone 5 MG/5 ML ORAL.SOL UDC PO PRN (09:30)
[2019-07-07] MEDS ORDERED: OMNIPAQUE 350 MG/ML, 50 ML BOTTLE ONE (09:53)
[2019-07-07] MEDS ORDERED: LABETALOL 5MG/ML, 20ML ONE (10:15)
[2019-07-07] MEDS: LABETALOL 5MG/ML, 20ML IV PRN ×2 (10:17→10:26)
[2019-07-07] MEDS ORDERED: hydrALAzine 20 MG/ML, 1ML ONE (10:28)
== END 2019-07-07 12:00 | disposition home or self-care (01) ==
LOC: OUT 06:21
PROVIDERS: ATTEND Internal Medicine Geriatric Medicine
DX: Z46.59 Encounter for fitting and adjustment of other gastrointestinal appliance and device (principal); C25.9 Malignant neoplasm of pancreas, unspecified; K80.51 Calculus of bile duct without cholangitis or cholecystitis with obstruction; K21.9 Gastro-esophageal reflux disease without esophagitis; E11.9 Type 2 diabetes mellitus without complications; I10 Essential (primary) hypertension; E03.9 Hypothyroidism, unspecified; F41.9 Anxiety disorder, unspecified; Z87.891 Personal history of nicotine dependence; Z88.8 Allergy status to other drugs, medicaments and biological substances
CPT/HCPCS: 43276; 74328; 77386; 82962; C1769; C1894; C2625; J0360; J2704; Q9967

== ENCOUNTER 2019-08-17 08:34 | Outpatient (CLI) | payer MEDICARE | END 2019-08-17 23:59 | disposition home or self-care (01) | LOC: ROC 08:34 | PROVIDERS: ATTEND Radiology Radiation Oncology | DX: Z08 Encounter for follow-up examination after completed treatment for malignant neoplasm (principal); C24.0 Malignant neoplasm of extrahepatic bile duct; I10 Essential (primary) hypertension; E03.9 Hypothyroidism, unspecified; E11.9 Type 2 diabetes mellitus without complications; Z90.89 Acquired absence of other organs; Z90.49 Acquired absence of other specified parts of digestive tract; Z87.891 Personal history of nicotine dependence | CPT/HCPCS: G0463 ==

== ENCOUNTER 2019-08-17 14:19 | Emergency (ER) | payer MEDICARE ==
[~2019-08-17] VITALS: Ht 165.1 cm; Wt 72.5 kg
[~2019-08-17 14:19] MED LIST changes: -HYDR-3246 PO; +HYDR-36 PO
[2019-08-17] MEDS ORDERED: SODIUM CHLORIDE FLUSH 10ML SYR IVF ONE (15:00)
[2019-08-17 15:18] LABS: RAPID INFLUENZA A Negative (Negative); RAPID INFLUENZA B Negative (Negative)
--- NOTE | 2019-08-17 15:19 | NUR ---
Pt here for generalized fatigue and abd feeling like it is burning. Pt also reporting sob with ambulation. 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 Pt does not know what type. Pt connected to monitors and call light in reach. Awaiting further orders.
--- NOTE | 2019-08-17 15:25 | NUR ---
Pt placed on droplet precautions and perianesthesia manager made aware.
[2019-08-17 15:49] LABS: BASOPHILS # (AUTO) 0.01 x10^3/uL (0-0.1); BASOPHILS % (AUTO) 0 % (0-1); EOSINOPHILS # (AUTO) 0.08 x10^3/uL (0-0.4); EOSINOPHILS % (AUTO) 2 % (1-7); LYMPHOCYTES # (AUTO) 1.35 x10^3/uL (1-3.4); LYMPHOCYTES % (AUTO) 31 % (22-44); MD NO; MEAN CORPUSCULAR HEMOGLOBIN 32.1 pg (27.5-34.5); MEAN CORPUSCULAR HGB CONC 33.2 g/dL (33.2-36.2); MEAN CORPUSCULAR VOLUME 96.5 fL (81-97); MEAN PLATELET VOLUME 6.8 fL (7.4-10.4); MONOCYTES # (AUTO) 0.35 x10^3/uL (0.2-0.8); MONOCYTES % (AUTO) 8 % (2-9); NEUTROPHILS # (AUTO) 2.56 x10^3/uL (1.8-6.8); NEUTROPHILS % (AUTO) 59 % (42-75); PLATELET COUNT 224 x10^3/uL (130-400); RED BLOOD COUNT 3.97 x10^6/uL (4.38-5.82); RED CELL DISTRIBUTION WIDTH 16.6 % (9.4-14.8)
[2019-08-17 16:00] LABS: ALBUMIN 3.8 g/dL (3.4-5.0); ANION GAP 7 mmol/L (5-15); CALCIUM 8.8 mg/dL (8.5-10.1); CHLORIDE 105 mmol/L (98-107)
[2019-08-17 16:06] LABS: ALANINE AMINOTRANSFERASE 48 U/L (12-78); ALKALINE PHOSPHATASE 102 U/L (45-117); BILIRUBIN,TOTAL 0.5 mg/dL (0.2-1.0); CREATININE 1.02 mg/dL (0.7-1.3); TOTAL PROTEIN 7.3 g/dL (6.4-8.2); TROPONIN I < 0.015 ng/mL (0.000-0.045)
[2019-08-17 16:19] LABS: INTERNATIONAL NORMALIZED RATIO 1.07 (0.93-1.1); PROTHROMBIN TIME 11.3 Seconds (9.6-11.5)
[2019-08-17] MEDS ORDERED: MORPHINE SULFATE 4 MG/ML, 1ML ONE ×2 (16:46→19:23)
[2019-08-17] MEDS ORDERED: ONDANSETRON 2MG/ML, 2ML ONE (16:46)
[2019-08-17] MEDS: MORPHINE SULFATE 4 MG/ML, 1ML IVPush PRN ×2 (16:48→19:29)
--- NOTE | 2019-08-17 16:51 | NUR ---
Pt medicated for pain, pt also given urinal and 2x warm blankets.
[2019-08-17] MEDS ORDERED: ONDANSETRON 2MG/ML, 2ML IVPush ONE (17:00)
--- NOTE | 2019-08-17 17:32 | NUR ---
CT called for estimation of time till exam, no answer at this time.
[2019-08-17] MEDS ORDERED: OMNIPAQUE 350 MG/ML, 100ML BOTTLE ONE (18:37)
[2019-08-17 19:17] VITALS: BP 167/83
--- NOTE | 2019-08-17 19:17 | NUR ---
UA collected and sent to lab.
[2019-08-17 19:23] LABS: MICROSCOPIC NOT IND
--- NOTE | 2019-08-17 19:36 | NUR ---
Pt given additional does of pain medications, sugar free soda, and chicken broth.
--- NOTE | 2019-08-17 20:18 | NUR ---
Patient/Caregiver given discharge instructions and they have confirmed that they understand the instructions. Patient ambulatory with steady gait.
== END 2019-08-17 20:20 | disposition home or self-care (01) ==
LOC: ED 18:41
DX: R10.84 Generalized abdominal pain (principal); R06.00 Dyspnea, unspecified; Z20.828 Contact with and (suspected) exposure to other viral communicable diseases; R07.89 Other chest pain; R06.02 Shortness of breath; M79.10 Myalgia, unspecified site; I10 Essential (primary) hypertension; E11.9 Type 2 diabetes mellitus without complications; E03.9 Hypothyroidism, unspecified; Z90.89 Acquired absence of other organs; Z90.49 Acquired absence of other specified parts of digestive tract; Z87.891 Personal history of nicotine dependence
CPT/HCPCS: 36415; 71045; 71275; 74177; 80053; 81003; 83605; 83690; 83880; 84484; 85025; 85610; 85730; 87040; 87400; 93005; 96374; 96375; 96376; 99285; J2270; J2405; Q9967; U0001

== ENCOUNTER 2019-09-10 06:54 | Day surgery (SDC) | payer MEDICARE ==
[~2019-09-10] VITALS: Ht 162.6 cm; Wt 70.8 kg
[~2019-09-10 06:54] MED LIST changes: +HYDR-3246 PO; -HYDR-36 PO
[2019-09-10] MEDS ORDERED: SODIUM CHLORIDE 0.9% 1,000 ML IV SCH (07:20)
[2019-09-10 07:36] VITALS: BP 143/86
[2019-09-10 08:18] LABS: INTERNATIONAL NORMALIZED RATIO 1.07 (0.93-1.1); PROTHROMBIN TIME 11.3 Seconds (9.6-11.5)
[2019-09-10] MEDS ORDERED: LIDOCAINE 1%, 10ML ONE (08:37)
[2019-09-10] MEDS ORDERED: FLUMAZENIL 0.1 MG/1 ML, 5ML ONE (08:41)
[2019-09-10] MEDS ORDERED: NALOXONE 1 MG/ML, 2ML ONE (08:41)
[2019-09-10] MEDS ORDERED: FENTANYL PF 100 MCG/2ML ONE (08:41)
[2019-09-10] MEDS ORDERED: MIDAZOLAM 1 MG/ML, 5ML ONE (08:41)
[2019-09-10] MEDS ORDERED: OXYcodone/APAP 10/325MG TABLET ONE (11:14)
[2019-09-10] MEDS ORDERED: OXYcodone/APAP 5/325MG TABLET ONE (11:15)
[2019-09-10] MEDS ORDERED: OXYcodone/APAP 5/325MG TABLET PO ONE (11:30)
== END 2019-09-10 12:20 | disposition home or self-care (01) ==
LOC: OUT 06:54
PROVIDERS: ATTEND Specialist
DX: C24.8 Malignant neoplasm of overlapping sites of biliary tract (principal); K76.0 Fatty (change of) liver, not elsewhere classified; I10 Essential (primary) hypertension; E11.9 Type 2 diabetes mellitus without complications; E03.9 Hypothyroidism, unspecified; Z87.891 Personal history of nicotine dependence; Z85.07 Personal history of malignant neoplasm of pancreas; Z92.21 Personal history of antineoplastic chemotherapy; Z88.8 Allergy status to other drugs, medicaments and biological substances; Z90.49 Acquired absence of other specified parts of digestive tract
CPT/HCPCS: 36415; 47000; 77012; 85610; 88307; 99156; 99157; J2250; J3010; J2310